=== PATIENT | female | born 1990 | race African-American/Black ===

== ENCOUNTER 2025-03-10 13:28 | Emergency (ER) | payer SELFPAY ==
[~2025-03-10] VITALS: Ht 170.2 cm; Wt 80.0 kg
[2025-03-10 13:34] VITALS: O2SAT 100
[2025-03-10 13:47] VITALS: BP 133/74; PULSE 72; RESP 16; TEMP 36.6; O2SAT 100
[2025-03-10] MEDS ORDERED: HYDR453.3 TP (15:00)
== END 2025-03-10 15:20 | disposition home or self-care (01) ==
LOC: ER 13:41
DX: L30.9 Dermatitis, unspecified (principal); Z79.899 Other long term (current) drug therapy
CPT/HCPCS: 99282